=== PATIENT | female | born 1955 | race American Indian/Alaskan Native ===

== ENCOUNTER 2017-02-01 05:52 | Day surgery (SDC) | payer OTHER ==
[2017-02-01] MEDS ORDERED: DIPRIVAN 10 MG/ML IV ONE ×2 (07:34)
--- NOTE | 2017-02-01 07:45 | Anesthesia Consultation ---
Anesthesia Consult and Med Hx Date of service: 02/01/17 - Airway Anesthetic Teeth Evaluation: Poor (many missing, very loose teeth bottom. Patient aware may come out. ) ROM Head & Neck: Adequate Mental/Hyoid Distance: Inadequate Mallampati Class: Class III Intubation Access Assessment: Possibly Difficult - Pulmonary Exam CTA: Yes - Cardiac Exam Cardiac Exam: RRR - Pre-Operative Health Status ASA Pre-Surgery Classification: ASA2 Proposed Anesthetic Plan: MAC - Pulmonary Hx Smoking: No - Cardiovascular System Hx Hypertension: No - Central Nervous System Hx Neuromuscular Disorder: No Hx Psychiatric Problems: No - Gastrointestinal Hx Gastroesophageal Reflux Disease: No - Endocrine Hx Renal Disease: No Hx Non-Insulin Dependent Diabetes: Yes (borderline) - Hematic Hx Anemia: No Hx Sickle Cell Disease: No - Other Systems Hx Alcohol Use: No Hx Substance Use: No Hx Cancer: No Hx Obesity: Yes
--- NOTE | 2017-02-01 07:45 | Anesthesia Day of Surgery ---
Anesthesia Day of Surgery - Day of Surgery Patient Examined: Yes Patient H&P Reviewed: Yes Patient is NPO: Yes
[2017-02-01] MEDS ORDERED: NACL 0.9% 1000 ML 1,000 ML IV SCH (08:00)
--- NOTE | 2017-02-01 08:26 | Short Stay Summary ---
Short Stay Documentation - Allergies and Medications Current Medications: Allergies aspirin Allergy (Unverified 02/01/17 05:53) Swelling OF THE FACE Active Medications Sodium Chloride (Nacl 0.9% 1000 Ml) 1,000 mls @ 50 mls/hr IV DIRECT MARIBELL - Brief post op/procedure progress note Date of procedure: 02/01/17 Pre-op diagnosis: Colon cancer screening Post-op diagnosis: same (1. Colon polyp 2. Internal hemorrhoids) Procedure: Colonoscopy with snare polypectomy Anesthesia: MAC Findings: as above Surgeon: ADELAIDE GARIBAY Estimated blood loss: none Pathology: list (1. Ascending colon polyp) Specimen disposition: to lab Condition: stable - Disposition Condition at discharge: Stable Disposition: DC-01 TO HOME OR SELFCARE Short Stay Discharge Plan Activity: no restrictions Weight Bearing Status: Full Weight Bearing Diet: regular Follow up with: SULEMAN BROWN MD [Primary Care Provider] - 7 Days
--- NOTE | 2017-02-01 08:37 | Post Anesthesia Evaluation ---
- Post Anesthesia Evaluation Patient Participated: Yes Airway Patent: Yes Stable Respiratory Function: Yes Nausea/Vomiting: No Temp > 96.8F: Yes Pain Manageable: Yes Adequeate Hydration: Yes Anesthesia Complications: No Block Receding Appropriately: Not Applicable Patient on Ventilator: No
[2017-02-01 08:54] VITALS: BP 131/87
[2017-02-01] MEDS ORDERED: XYLOCAINE MPF 2% ONE (10:00)
[2017-02-01] MEDS ORDERED: WATER FOR IRRIG STERILE IR ONE (10:03)
== END 2017-02-01 05:53 | disposition home or self-care (01) ==
LOC: GIO 05:52
PROVIDERS: ATTEND Internal Medicine Gastroenterology
DX: Z12.11 Encounter for screening for malignant neoplasm of colon (principal); D12.2 Benign neoplasm of ascending colon; K64.8 Other hemorrhoids; R73.03 Prediabetes; Z79.84 Long term (current) use of oral hypoglycemic drugs; Z88.6 Allergy status to analgesic agent; Z98.890 Other specified postprocedural states
CPT/HCPCS: 45385; 82962; 88305; J2704; J7030

== ENCOUNTER 2017-05-16 08:54 | Outpatient (CLI) | payer OTHER | END 2017-05-16 08:55 | disposition home or self-care (01) | LOC: ECHO 08:54 | PROVIDERS: ATTEND Internal Medicine Cardiovascular Disease | DX: I31.1 Chronic constrictive pericarditis (principal); I37.1 Nonrheumatic pulmonary valve insufficiency; I35.8 Other nonrheumatic aortic valve disorders | CPT/HCPCS: 93306 ==